=== PATIENT | male | born 1960 | race African-American/Black ===

== ENCOUNTER 2022-07-16 09:53 | Inpatient (IN) | payer MEDICAID ==
[~2022-07-16] VITALS: Ht 175.3 cm; Wt 62.8 kg
[~2022-07-16 09:53] MED LIST: ALBU90AE INH; ATOR10TA PO; FURO-151 MT; LOSA25TA3 PO
[2022-07-16] MEDS ORDERED: METHYLPREDNISOLONE SOD SUCC 125 MG/2 ML VIAL IV STA (10:12)
[2022-07-16] MEDS ORDERED: IPRATROPIUM BROMIDE (0.02%) 0.5MG/2.5ML NEB HHN STA (10:12)
[2022-07-16] MEDS ORDERED: MAGNESIUM 2 G PREMIX 50 ML IV ONE (10:15)
[2022-07-16] MEDS ORDERED: FUROSEMIDE 40MG/4ML VIAL IV ONE (10:15)
[2022-07-16] MEDS ORDERED: ALBUTEROL (0.083%) 2.5MG/3ML NEB HHN SCH (10:30)
[2022-07-16] MEDS ORDERED: PIPERACILLIN/TAZ 3.375G PREMIX 50 ML IV NR (10:49)
[2022-07-16 10:50] LABS: BASOPHILS % 0.5 % (0.0-2.0); EOSINOPHILS % 8.9 % (0.0-5.0); HEMATOCRIT. 44.3 % (42.0-52.0); HEMOGLOBIN. 14.3 g/dL (14.0-18.0); MEAN CORPUSCULAR HEMOGLOBIN 32.4 pg (28.0-32.0); MEAN CORPUSCULAR VOLUME 100.3 fL (80.0-94.0); MONOCYTES % 9.8 % (2.0-8.0); NEUTROPHILS % 53.8 % (40.0-76.0); PLATELET 248 x1000/uL (130-400); RED BLOOD CELL COUNT 4.42 mill/uL (4.7-6.1); RED CELL DISTRIBUTION WIDTH 14.2 % (11.6-14.6)
[2022-07-16 10:55] LABS: CHLORIDE 107 mEq/L (98-107)
[2022-07-16] MEDS ORDERED: ASPIRIN 325MG EC TABLET PO ONE (12:00)
[2022-07-16 13:08] LABS: BG CARBOXYHEMOGLOBIN 0.9 % (0.5-1.5); BG DEOXYHEMOGLOBIN 0.1 % (0.0-5.0); BG FRACTION INSPIRED OXYGEN 100; BG HCO3 ACT 24.9 mmol/L (22.0-26.0); BG METHEMOGLOBIN 0.4 % (0.0-1.5); BG OXYGEN SATURATION 99.9 % (92.0-98.5); BG OXYHEMOGLOBIN 98.6 % (94.0-97.0); BG PCO2 41.5 mmHg (35.0-45.0); BG PH 7.396 (7.350-7.450); BG PO2 519.2 mmHg (75.0-100.0); BG SAMPLE SITE RIGHT RADIAL; BG TOTAL HEMOGLOBIN 14.9 g/dL (12.0-18.0); BG VENT MODE MASK - BIPAP
[2022-07-16] MEDS ORDERED: LOSARTAN POTASSIUM 25 MG TABLET PO SCH (14:00)
[2022-07-16] MEDS ORDERED: CLONIDINE 0.1MG TABLET PO PRN (14:15)
[2022-07-16] MEDS ORDERED: ONDANSETRON HCL 4MG/2ML INJ IV PRN (14:15)
[2022-07-16 14:52] LABS: CLARITY URINE CLEAR (CLEAR); COLOR URINE YELLOW (YELLOW); KETONES URINE NEGATIVE (NEGATIVE); LEUKOCYTE ESTERASE URINE TRACE (NEGATIVE); NITRITE URINE NEGATIVE (NEGATIVE); OCCULT BLOOD URINE NEGATIVE (NEGATIVE); PH URINE 5.5 (4.5-8.0); PROTEIN URINE NEGATIVE (NEGATIVE); SPECIFIC GRAVITY URINE 1.007 (1.005-1.030); UROBILINOGEN URINE 0.2 E.U./dL (0.2-1.0)
[2022-07-16 15:08] LABS: *AMPHETAMINES SCREEN URINE PRESUMTIVE POSITIVE (NEGATIVE); *BARBITURATES SCREEN URINE NEGATIVE (NEGATIVE); *BENZODIAZEPINES SCREEN URINE NEGATIVE (NEGATIVE); *COCAINE SCREEN URINE PRESUMTIVE POSITIVE (NEGATIVE); CANNABINOID URINE SCREEN NEGATIVE (NEGATIVE); METHADONE URINE SCREEN NEGATIVE (NEGATIVE); OPIATES URINE SCREEN NEGATIVE (NEGATIVE); PHENCYCLIDINE URINE SCREEN NEGATIVE (NEGATIVE)
[2022-07-16] MEDS ORDERED: FUROSEMIDE 40MG/4ML VIAL IVP SCH (16:00)
[2022-07-16] MEDS: ENOXAPARIN 40MG/0.4ML SYR SUBCUT SCH (18:03)
[2022-07-16] MEDS: IPRATROPIUM/ALBUTEROL 0.5-3(2.5)MG/3ML NEB HHN SCH (20:30)
[2022-07-16] MEDS: ATORVASTATIN CALCIUM 10MG TABLET PO SCH (21:00)
[2022-07-16] MEDS: FUROSEMIDE 40MG/4ML VIAL IVP SCH (21:00)
[2022-07-16] MEDS: METHYLPREDNISOLONE SOD SUCC 125 MG/2 ML VIAL IV SCH (22:23)
[2022-07-17] VITALS (10 sets, daily range): BP systolic 105–144; BP diastolic 73–98
[2022-07-17] MEDS: IPRATROPIUM/ALBUTEROL 0.5-3(2.5)MG/3ML NEB HHN SCH ×7 (00:19→23:04)
[2022-07-17 00:20] LABS: CREATINE KINASE MB FRACTION 2.5 ng/mL (0.5-3.6)
[2022-07-17] MEDS: ACETAMINOPHEN 325MG TABLET PO PRN ×2 (03:30→19:50)
[2022-07-17] MEDS: METHYLPREDNISOLONE SOD SUCC 125 MG/2 ML VIAL IV SCH ×3 (05:00→22:07)
[2022-07-17] MEDS ORDERED: HYDRALAZINE 20MG/ML VIAL IV PRN (07:30)
[2022-07-17] MEDS: PANTOPRAZOLE 40MG DR TABLET PO SCH (09:27)
[2022-07-17] MEDS: FUROSEMIDE 40MG/4ML VIAL IVP SCH ×2 (09:27→20:24)
[2022-07-17] MEDS: ASPIRIN 81MG EC TABLET PO SCH (09:27)
[2022-07-17] MEDS: LOSARTAN POTASSIUM 25 MG TABLET PO SCH (09:28)
[2022-07-17 11:27] LABS: CHLORIDE 100 mEq/L (98-107)
[2022-07-17 11:39] LABS: CREATINE KINASE 91 IU/L (39-308); CREATINE KINASE MB FRACTION 2.9 ng/mL (0.5-3.6)
[2022-07-17 11:43] LABS: T4 FREE 1.05 ng/dL (0.76-1.46)
[2022-07-17 11:49] LABS: HEMATOCRIT. 44.3 % (42.0-52.0); HEMOGLOBIN. 14.5 g/dL (14.0-18.0); MEAN CORPUSCULAR HEMOGLOBIN 32.7 pg (28.0-32.0); MEAN CORPUSCULAR VOLUME 100.2 fL (80.0-94.0); MEAN PLATELET VOLUME 9.4 fl (7.4-10.4); PLATELET 240 x1000/uL (130-400); RED BLOOD CELL COUNT 4.43 mill/uL (4.7-6.1)
[2022-07-17] MEDS: ENOXAPARIN 40MG/0.4ML SYR SUBCUT SCH (17:14)
[2022-07-17 18:07] LABS: HEMATOCRIT 42.2 % (42.0-52.0); HEMOGLOBIN 13.5 g/dL (14.0-18.0); MEAN CORPUSCULAR HEMOGLOBIN 32.1 pg (28.0-32.0); MEAN CORPUSCULAR VOLUME 100.4 fL (80.0-94.0); PLATELET 243 x1000/uL (130-400); RED BLOOD CELL COUNT 4.21 mill/uL (4.7-6.1); RED CELL DISTRIBUTION WIDTH 13.9 % (11.6-14.6)
[2022-07-17] MEDS: ATORVASTATIN CALCIUM 10MG TABLET PO SCH (20:24)
[2022-07-18] VITALS (13 sets, daily range): BP systolic 111–160; BP diastolic 56–109
[2022-07-18] MEDS: IPRATROPIUM/ALBUTEROL 0.5-3(2.5)MG/3ML NEB HHN SCH ×6 (00:25→16:28)
[2022-07-18] MEDS: METHYLPREDNISOLONE SOD SUCC 125 MG/2 ML VIAL IV SCH ×2 (06:02→15:38)
[2022-07-18] MEDS: PANTOPRAZOLE 40MG DR TABLET PO SCH (07:58)
[2022-07-18] MEDS: FUROSEMIDE 40MG/4ML VIAL IVP SCH ×2 (07:58→20:07)
[2022-07-18] MEDS: LOSARTAN POTASSIUM 25 MG TABLET PO SCH (07:58)
[2022-07-18] MEDS: ASPIRIN 81MG EC TABLET PO SCH (07:59)
[2022-07-18 10:21] LABS: PLATELET ESTIMATE NORMAL
[2022-07-18] MEDS: DILTIAZEM HCL 30MG TABLET PO SCH ×2 (15:38→18:00)
[2022-07-18] MEDS: ENOXAPARIN 40MG/0.4ML SYR SUBCUT SCH (15:39)
[2022-07-18] MEDS: ATORVASTATIN CALCIUM 10MG TABLET PO SCH (20:06)
[2022-07-18] MEDS ORDERED: METHYLPREDNISOLONE 40MG/ML INJ IV SCH (22:00)
[2022-07-19] VITALS (12 sets, daily range): BP systolic 108–130; BP diastolic 56–93
[2022-07-19] MEDS: METHYLPREDNISOLONE SOD SUCC 40 MG/ML VIAL IV SCH ×4 (00:26→21:00)
[2022-07-19] MEDS: DILTIAZEM HCL 30MG TABLET PO SCH ×5 (00:33→23:21)
[2022-07-19] MEDS: PANTOPRAZOLE 40MG DR TABLET PO SCH (06:33)
[2022-07-19] MEDS: LOSARTAN POTASSIUM 25 MG TABLET PO SCH (09:33)
[2022-07-19] MEDS: ASPIRIN 81MG EC TABLET PO SCH (09:33)
[2022-07-19] MEDS ORDERED: LACTULOSE 20G/30ML UDC PO NR (09:45)
[2022-07-19] MEDS: FUROSEMIDE 40MG TABLET PO SCH (11:29)
[2022-07-19] MEDS: DOCUSATE SODIUM 100MG CAPSULE PO SCH (11:29)
[2022-07-19] MEDS: IPRATROPIUM/ALBUTEROL 0.5-3(2.5)MG/3ML NEB HHN SCH ×3 (12:09→21:19)
[2022-07-19] MEDS: ENOXAPARIN 40MG/0.4ML SYR SUBCUT SCH (16:14)
[2022-07-19] MEDS: ATORVASTATIN CALCIUM 10MG TABLET PO SCH (20:56)
[2022-07-20] VITALS (7 sets, daily range): BP systolic 114–137; BP diastolic 69–90
[2022-07-20] MEDS: IPRATROPIUM/ALBUTEROL 0.5-3(2.5)MG/3ML NEB HHN SCH ×4 (00:36→11:35)
[2022-07-20] MEDS: DILTIAZEM HCL 30MG TABLET PO SCH (06:19)
[2022-07-20] MEDS: METHYLPREDNISOLONE SOD SUCC 40 MG/ML VIAL IV SCH (06:19)
[2022-07-20] MEDS: LOSARTAN POTASSIUM 25 MG TABLET PO SCH (08:15)
[2022-07-20] MEDS: ASPIRIN 81MG EC TABLET PO SCH (08:15)
[2022-07-20] MEDS: FUROSEMIDE 40MG TABLET PO SCH (08:15)
[2022-07-20] MEDS: DOCUSATE SODIUM 100MG CAPSULE PO SCH (08:15)
[2022-07-20] MEDS ORDERED: FAMOTIDINE 20MG TABLET PO SCH (09:00)
[2022-07-20 11:25] LABS: HEMATOCRIT. 45.5 % (42.0-52.0); HEMOGLOBIN. 14.2 g/dL (14.0-18.0); MEAN CORPUSCULAR HEMOGLOBIN 32.7 pg (28.0-32.0); MEAN CORPUSCULAR VOLUME 105.1 fL (80.0-94.0); PLATELET 215 x1000/uL (130-400); RED BLOOD CELL COUNT 4.33 mill/uL (4.7-6.1); RED CELL DISTRIBUTION WIDTH 14.3 % (11.6-14.6)
[2022-07-20 11:35] LABS: CHLORIDE 102 mEq/L (98-107)
[2022-07-20 12:03] LABS: PLATELET ESTIMATE NORMAL
== END 2022-07-20 12:40 | disposition home or self-care (01) | DRG 133 ==
LOC: ER 09:53 → MICUSO 11:46 → EDBEDREQ 12:29 → EDBEDREQSVC 12:29 → EDBEDREQTM 12:29 → ENRESERV 22:37 → 5EST 07-17 02:30
PROVIDERS: ADMIT Internal Medicine; ATTEND Internal Medicine
PROC: 5A09357 Assistance with Respiratory Ventilation, Less than 24 Consecutive Hours, Continuous Positive Airway Pressure (ICD-10-PCS; principal; 2022-07-16)
DX: J96.20 Acute and chronic respiratory failure, unspecified whether with hypoxia or hypercapnia (principal); I50.23 Acute on chronic systolic (congestive) heart failure; N17.9 Acute kidney failure, unspecified; J44.1 Chronic obstructive pulmonary disease with (acute) exacerbation; I11.0 Hypertensive heart disease with heart failure; E78.5 Hyperlipidemia, unspecified; R73.9 Hyperglycemia, unspecified; F19.10 Other psychoactive substance abuse, uncomplicated; F17.200 Nicotine dependence, unspecified, uncomplicated; F14.90 Cocaine use, unspecified, uncomplicated; Z79.899 Other long term (current) drug therapy
CPT/HCPCS: 36415; 36600; 71045; 80048; 80053; 80061; 80305; 81003; 82375; 82550; 82553; 82805; 83036; 83735; 83880; 84439; 84443; 84484; 85025; 85027; 93005; 94640; 94660; 99291; J1650; J1940; J2543; J2920; J2930; J3475

== ENCOUNTER 2022-09-08 13:20 | Inpatient (IN) | payer MEDICAID ==
[~2022-09-08] VITALS: Ht 177.8 cm; Wt 73.5 kg
[2022-09-08 16:22] LABS: HEMATOCRIT. 45.5 % (42.0-52.0); HEMOGLOBIN. 14.9 g/dL (14.0-18.0); MEAN CORPUSCULAR HEMOGLOBIN 32.7 pg (28.0-32.0); MEAN CORPUSCULAR VOLUME 99.9 fL (80.0-94.0); MEAN PLATELET VOLUME 9.4 fl (7.4-10.4); PLATELET 210 x1000/uL (130-400); RED BLOOD CELL COUNT 4.56 mill/uL (4.7-6.1); RED CELL DISTRIBUTION WIDTH 14.7 % (11.6-14.6)
[2022-09-08 16:25] LABS: CHLORIDE 106 mEq/L (98-107)
[2022-09-08 17:12] LABS: PLATELET ESTIMATE NORMAL
[2022-09-08] MEDS ORDERED: ASPIRIN 325MG EC TABLET PO ONE (19:30)
[2022-09-08] MEDS ORDERED: ONDANSETRON HCL 4MG/2ML INJ IV PRN (19:45)
[2022-09-08] MEDS ORDERED: GUAIFENESIN 200MG/10ML SUGAR FREE UDC PO PRN (19:45)
[2022-09-08] MEDS ORDERED: IPRATROPIUM/ALBUTEROL 0.5-3(2.5)MG/3ML NEB HHN PRN (19:45)
[2022-09-08] MEDS ORDERED: DOCUSATE SODIUM 100MG CAPSULE PO PRN (19:45)
[2022-09-08] MEDS ORDERED: MAGNESIUM/ALUMINUM HYDROXIDE/SIMETHICONE 30ML UDC PO PRN (19:45)
[2022-09-08] MEDS ORDERED: HYDROCODONE/ACETAMINOPHEN 5/325MG TABLET PO PRN (19:45)
[2022-09-08] MEDS ORDERED: ACETAMINOPHEN 325MG TABLET PO PRN ×2 (19:45)
[2022-09-08] MEDS ORDERED: ACETAMINOPHEN 650MG SUPP PR PRN ×2 (19:45)
[2022-09-08 20:04] LABS: CLARITY URINE CLOUDY (CLEAR); COLOR URINE DARK YELLOW (YELLOW); KETONES URINE TRACE (NEGATIVE); LEUKOCYTE ESTERASE URINE 2+ (NEGATIVE); NITRITE URINE NEGATIVE (NEGATIVE); OCCULT BLOOD URINE TRACE (NEGATIVE); PROTEIN URINE 3+ (NEGATIVE); SPECIFIC GRAVITY URINE 1.029 (1.005-1.030)
[2022-09-08] MEDS ORDERED: AZITHROMYCIN 500 MG TABLET PO ONE (20:15)
[2022-09-08] MEDS ORDERED: CEFTRIAXONE 1 G PREMIX 50 ML IV ONE (20:15)
[2022-09-08] MEDS: ENOXAPARIN 40MG/0.4ML SYR SUBCUT SCH (21:00)
[2022-09-08] MEDS ORDERED: AZITHROMYCIN 500 MG TABLET PO NR (23:00)
[2022-09-08] MEDS ORDERED: CEFTRIAXONE 1 G PREMIX 50 ML IV NR (23:00)
[2022-09-08] MEDS ORDERED: ASPIRIN 325MG EC TABLET PO NR (23:45)
[2022-09-09 05:42] LABS: HEMATOCRIT. 52.5 % (42.0-52.0); HEMOGLOBIN. 17.3 g/dL (14.0-18.0); MEAN CORPUSCULAR HEMOGLOBIN 32.8 pg (28.0-32.0); MEAN CORPUSCULAR VOLUME 99.7 fL (80.0-94.0); MEAN PLATELET VOLUME 9.4 fl (7.4-10.4); PLATELET 211 x1000/uL (130-400); RED BLOOD CELL COUNT 5.27 mill/uL (4.7-6.1); RED CELL DISTRIBUTION WIDTH 14.6 % (11.6-14.6)
[2022-09-09 05:52] LABS: CHLORIDE 105 mEq/L (98-107)
[2022-09-09 06:10] LABS: CREATINE KINASE 164 IU/L (39-308); HDL CHOLESTEROL 57 mg/dL (40-59); LDL CHOLESTEROL 157 mg/dL (5-100)
[2022-09-09 06:54] LABS: PLATELET ESTIMATE NORMAL
[2022-09-09 09:00] VITALS: BP 123/97
[2022-09-09 09:47] VITALS: BP 123/97
[2022-09-09] MEDS: LISINOPRIL 10MG TABLET PO SCH (10:29)
[2022-09-09] MEDS: FUROSEMIDE 40MG/4ML VIAL IV SCH (10:29)
[2022-09-09] MEDS: AMLODIPINE 10MG TABLET PO SCH (10:29)
[2022-09-09 12:00] VITALS: BP 121/88
[2022-09-09 12:59] LABS: *AMPHETAMINES SCREEN URINE NEGATIVE (NEGATIVE); *BARBITURATES SCREEN URINE NEGATIVE (NEGATIVE); *BENZODIAZEPINES SCREEN URINE NEGATIVE (NEGATIVE); *COCAINE SCREEN URINE PRESUMTIVE POSITIVE (NEGATIVE); CANNABINOID URINE SCREEN PRESUMTIVE POSITIVE (NEGATIVE); METHADONE URINE SCREEN NEGATIVE (NEGATIVE); OPIATES URINE SCREEN NEGATIVE (NEGATIVE); PHENCYCLIDINE URINE SCREEN NEGATIVE (NEGATIVE)
[2022-09-09] MEDS ORDERED: NALOXONE HCL 0.4MG/ML VIAL IV PRN (14:45)
[2022-09-09 16:00] VITALS: BP 107/69
[2022-09-09 20:00] VITALS: BP 115/86
[2022-09-09] MEDS: ENOXAPARIN 40MG/0.4ML SYR SUBCUT SCH (21:38)
[2022-09-10] VITALS: BP 120/86
[2022-09-10 04:00] VITALS: BP 118/89
[2022-09-10 08:00] VITALS: BP 123/83
[2022-09-10] MEDS ORDERED: PNEUMOCOCCAL 23-VAL P-SAC VAC 0.5 ML IM ONE (09:00)
[2022-09-10] MEDS ORDERED: INFLUENZA VACCINE 05/PF 0.5 ML SYRINGE IM ONE (09:00)
[2022-09-10] MEDS: LISINOPRIL 10MG TABLET PO SCH (09:50)
[2022-09-10] MEDS: FUROSEMIDE 40MG/4ML VIAL IV SCH (09:51)
[2022-09-10] MEDS: AMLODIPINE 10MG TABLET PO SCH (09:51)
[2022-09-10 12:00] VITALS: BP 126/82
[2022-09-10 16:00] VITALS: BP 122/76
[2022-09-10 16:07] LABS: HEMATOCRIT 44.8 % (42.0-52.0); HEMOGLOBIN 14.9 g/dL (14.0-18.0); MEAN CORPUSCULAR HEMOGLOBIN 32.6 pg (28.0-32.0); MEAN CORPUSCULAR VOLUME 97.7 fL (80.0-94.0); PLATELET 219 x1000/uL (130-400); RED BLOOD CELL COUNT 4.58 mill/uL (4.7-6.1); RED CELL DISTRIBUTION WIDTH 14.4 % (11.6-14.6)
[2022-09-10 16:32] LABS: CHLORIDE 100 mEq/L (98-107)
[2022-09-10 20:00] VITALS: BP 104/72
[2022-09-10] MEDS: ENOXAPARIN 40MG/0.4ML SYR SUBCUT SCH (21:23)
[2022-09-11] VITALS (7 sets, daily range): BP systolic 99–115; BP diastolic 63–83
[2022-09-11] MEDS: FUROSEMIDE 40MG/4ML VIAL IV SCH (09:52)
[2022-09-11] MEDS: LISINOPRIL 10MG TABLET PO SCH (09:52)
== END 2022-09-11 13:50 | disposition home or self-care (01) | DRG 254 ==
LOC: ER 13:20 → 6WST 09-09 07:43 → EDBEDREQTM 09-09 07:45 → EDBEDREQ 09-09 07:45 → ENRESERV 09-09 08:20
PROVIDERS: ADMIT Family Medicine Adult Medicine; ATTEND Family Medicine Adult Medicine
DX: K40.90 Unilateral inguinal hernia, without obstruction or gangrene, not specified as recurrent (principal); I42.9 Cardiomyopathy, unspecified; I50.9 Heart failure, unspecified; I11.0 Hypertensive heart disease with heart failure; F17.210 Nicotine dependence, cigarettes, uncomplicated; F12.10 Cannabis abuse, uncomplicated; F14.10 Cocaine abuse, uncomplicated; E78.5 Hyperlipidemia, unspecified; R74.01 Elevation of levels of liver transaminase levels; N50.89 Other specified disorders of the male genital organs; I37.1 Nonrheumatic pulmonary valve insufficiency; N43.3 Hydrocele, unspecified; I34.0 Nonrheumatic mitral (valve) insufficiency
CPT/HCPCS: 36415; 71045; 76870; 80053; 80061; 80305; 81003; 82550; 83880; 84443; 84484; 85025; 85027; 90686; 90732; 93005; 93976; 97162; 99285; J0696; J1650; J1940; J2405

== ENCOUNTER 2022-11-17 10:05 | Inpatient (IN) | payer MEDICAID ==
[~2022-11-17] VITALS: Ht 177.8 cm; Wt 60.4 kg
[2022-11-17] MEDS ORDERED: CEFTRIAXONE 1 G PREMIX 50 ML IV ONE (12:00)
[2022-11-17 13:12] LABS: BASOPHILS % 0.3 % (0.0-2.0); EOSINOPHILS % 1.2 % (0.0-5.0); HEMATOCRIT. 34.1 % (42.0-52.0); HEMOGLOBIN. 11.3 g/dL (14.0-18.0); LYMPHOCYTES % 8.7 % (20.0-50.0); MEAN CORPUSCULAR HEMOGLOBIN 32.5 pg (28.0-32.0); MEAN CORPUSCULAR VOLUME 97.8 fL (80.0-94.0); MEAN PLATELET VOLUME 8.2 fl (7.4-10.4); MONOCYTES % 12.4 % (2.0-8.0); NEUTROPHILS % 77.4 % (40.0-76.0); PLATELET 257 x1000/uL (130-400); RED BLOOD CELL COUNT 3.49 mill/uL (4.7-6.1)
[2022-11-17 13:23] LABS: CHLORIDE 107 mEq/L (98-107)
[2022-11-17] MEDS ORDERED: ONDANSETRON HCL 4MG/2ML INJ IV PRN (17:15)
[2022-11-17] MEDS: FUROSEMIDE 40MG/4ML VIAL IVP SCH (17:15)
[2022-11-18] VITALS (7 sets, daily range): BP systolic 113–143; BP diastolic 73–113
[2022-11-18 01:17] LABS: HEMOGLOBIN. 11.2 g/dL (14.0-18.0); MEAN CORPUSCULAR VOLUME 97.2 fL (80.0-94.0); MEAN PLATELET VOLUME 8.3 fl (7.4-10.4); PLATELET 264 x1000/uL (130-400); RED CELL DISTRIBUTION WIDTH 16.1 % (11.6-14.6)
[2022-11-18 02:22] LABS: PLATELET ESTIMATE NORMAL
[2022-11-18 08:24] LABS: CHLORIDE 105 mEq/L (98-107)
[2022-11-18] MEDS: FUROSEMIDE 40MG/4ML VIAL IVP SCH (09:24)
[2022-11-18] MEDS ORDERED: VANCOMYCIN 1500MG in DEXTROSE 5% WATER 250ML IV NR (18:00)
[2022-11-18] MEDS: ENOXAPARIN 40MG/0.4ML SYR SUBCUT SCH (21:00)
[2022-11-18] MEDS: FAMOTIDINE 20MG TABLET PO SCH (21:15)
[2022-11-18] MEDS: PIPERACILLIN/TAZOBACTAM 3.375 G in DEXTROSE 5% WATER 50 ML IV SCH (22:18)
[2022-11-19] VITALS: BP 109/73
[2022-11-19 04:00] VITALS: BP 128/88
[2022-11-19] MEDS: PIPERACILLIN/TAZOBACTAM 3.375 G in DEXTROSE 5% WATER 50 ML IV SCH ×3 (05:10→23:18)
[2022-11-19] MEDS ORDERED: VANCOMYCIN 1G PREMIX 200 ML IV SCH (06:00)
[2022-11-19 06:43] LABS: CHLORIDE 104 mEq/L (98-107)
[2022-11-19 07:31] LABS: HEMATOCRIT. 33.3 % (42.0-52.0); MEAN CORPUSCULAR HEMOGLOBIN 32.3 pg (28.0-32.0); MEAN CORPUSCULAR VOLUME 97.5 fL (80.0-94.0); MEAN PLATELET VOLUME 8.6 fl (7.4-10.4); PLATELET 296 x1000/uL (130-400); RED BLOOD CELL COUNT 3.41 mill/uL (4.7-6.1)
[2022-11-19 08:00] VITALS: BP 126/87
[2022-11-19] MEDS: FUROSEMIDE 40MG/4ML VIAL IVP SCH (09:34)
[2022-11-19 11:23] LABS: CLARITY URINE CLEAR (CLEAR); COLOR URINE YELLOW (YELLOW); KETONES URINE NEGATIVE (NEGATIVE); LEUKOCYTE ESTERASE URINE NEGATIVE (NEGATIVE); NITRITE URINE NEGATIVE (NEGATIVE); OCCULT BLOOD URINE NEGATIVE (NEGATIVE); PROTEIN URINE NEGATIVE (NEGATIVE); SPECIFIC GRAVITY URINE 1.006 (1.005-1.030); UROBILINOGEN URINE 0.2 E.U./dL (0.2-1.0)
[2022-11-19 12:00] VITALS: BP 124/80
[2022-11-19 12:13] LABS: *AMPHETAMINES SCREEN URINE NEGATIVE (NEGATIVE); *BARBITURATES SCREEN URINE NEGATIVE (NEGATIVE); *BENZODIAZEPINES SCREEN URINE NEGATIVE (NEGATIVE); *COCAINE SCREEN URINE NEGATIVE (NEGATIVE); CANNABINOID URINE SCREEN NEGATIVE (NEGATIVE); METHADONE URINE SCREEN NEGATIVE (NEGATIVE); OPIATES URINE SCREEN NEGATIVE (NEGATIVE); PHENCYCLIDINE URINE SCREEN NEGATIVE (NEGATIVE)
[2022-11-19 13:44] LABS: PLATELET ESTIMATE NORMAL
[2022-11-19 16:00] VITALS: BP 116/79
[2022-11-19] MEDS ORDERED: VANCOMYCIN 750MG PREMIX 150 ML IV NR (21:00)
[2022-11-19] MEDS: FAMOTIDINE 20MG TABLET PO SCH (21:25)
[2022-11-19] MEDS: CARVEDILOL 6.25 MG TABLET PO SCH (21:27)
[2022-11-19] MEDS: ENOXAPARIN 40MG/0.4ML SYR SUBCUT SCH (21:28)
[2022-11-20] VITALS: BP 92/58
[2022-11-20] MEDS: PIPERACILLIN/TAZOBACTAM 3.375 G in DEXTROSE 5% WATER 50 ML IV SCH ×3 (05:27→22:05)
[2022-11-20 08:00] VITALS: BP 109/82
[2022-11-20 08:11] LABS: CHLORIDE 103 mEq/L (98-107)
[2022-11-20] MEDS: CARVEDILOL 6.25 MG TABLET PO SCH ×2 (09:00→21:00)
[2022-11-20] MEDS: FUROSEMIDE 40MG/4ML VIAL IVP SCH (09:23)
[2022-11-20 12:00] VITALS: BP 118/76
[2022-11-20 16:00] VITALS: BP 116/90
[2022-11-20 16:09] LABS: HEMATOCRIT. 33.7 % (42.0-52.0); MEAN CORPUSCULAR VOLUME 97.4 fL (80.0-94.0); PLATELET 350 x1000/uL (130-400); RED BLOOD CELL COUNT 3.45 mill/uL (4.7-6.1); RED CELL DISTRIBUTION WIDTH 16.1 % (11.6-14.6)
[2022-11-20 16:29] LABS: CHLORIDE 99 mEq/L (98-107)
[2022-11-20] MEDS ORDERED: VANCOMYCIN 750MG PREMIX 150 ML IV SCH (18:00)
[2022-11-20 18:12] LABS: PLATELET ESTIMATE NORMAL
[2022-11-20 20:00] VITALS: BP 93/64
[2022-11-20] MEDS: ENOXAPARIN 40MG/0.4ML SYR SUBCUT SCH (21:00)
[2022-11-20] MEDS: FAMOTIDINE 20MG TABLET PO SCH (22:04)
[2022-11-21] VITALS: BP 100/62
[2022-11-21 04:00] VITALS: BP 99/68
[2022-11-21] MEDS: PIPERACILLIN/TAZOBACTAM 3.375 G in DEXTROSE 5% WATER 50 ML IV SCH ×3 (06:16→22:00)
[2022-11-21 08:00] VITALS: BP 100/82
[2022-11-21] MEDS: CARVEDILOL 6.25 MG TABLET PO SCH ×3 (08:54→21:17)
[2022-11-21] MEDS: FUROSEMIDE 40MG/4ML VIAL IVP SCH (08:55)
[2022-11-21 16:00] VITALS: BP 97/61
[2022-11-21 20:00] VITALS: BP 95/64
[2022-11-21] MEDS ORDERED: VANCOMYCIN 750MG PREMIX 150 ML IV SCH (21:00)
[2022-11-21] MEDS: ENOXAPARIN 40MG/0.4ML SYR SUBCUT SCH (21:16)
[2022-11-21] MEDS: FAMOTIDINE 20MG TABLET PO SCH (21:16)
[2022-11-22] VITALS: BP 96/33
[2022-11-22 04:00] VITALS: BP 106/74
[2022-11-22] MEDS: PIPERACILLIN/TAZOBACTAM 3.375 G in DEXTROSE 5% WATER 50 ML IV SCH ×2 (05:34→13:45)
[2022-11-22 07:01] LABS: CHLORIDE 100 mEq/L (98-107)
[2022-11-22 08:00] VITALS: BP 98/69
[2022-11-22] MEDS: FUROSEMIDE 40MG/4ML VIAL IVP SCH (08:40)
[2022-11-22] MEDS: CARVEDILOL 6.25 MG TABLET PO SCH ×2 (08:40→21:00)
[2022-11-22] MEDS: ACETAMINOPHEN 325MG TABLET PO PRN ×2 (10:50→20:30)
[2022-11-22 12:00] VITALS: BP 92/67
[2022-11-22 16:00] VITALS: BP 97/58
[2022-11-22 20:00] VITALS: BP 103/57
[2022-11-22] MEDS: FAMOTIDINE 20MG TABLET PO SCH (20:30)
[2022-11-22] MEDS: VANCOMYCIN 1G PREMIX 200 ML IV SCH (20:30)
[2022-11-22] MEDS: ENOXAPARIN 40MG/0.4ML SYR SUBCUT SCH (20:38)
[2022-11-23] VITALS: BP 92/56
[2022-11-23] MEDS: PIPERACILLIN/TAZOBACTAM 3.375 G in DEXTROSE 5% WATER 50 ML IV SCH ×3 (02:39→14:59)
[2022-11-23 04:00] VITALS: BP 96/60
[2022-11-23 07:51] LABS: CHLORIDE 102 mEq/L (98-107)
[2022-11-23 08:00] VITALS: BP 100/65
[2022-11-23] MEDS: CARVEDILOL 6.25 MG TABLET PO SCH ×2 (09:00→21:00)
[2022-11-23] MEDS: FUROSEMIDE 40MG/4ML VIAL IVP SCH (09:29)
[2022-11-23] MEDS: ACETAMINOPHEN 325MG TABLET PO PRN ×2 (11:30→20:47)
[2022-11-23 12:00] VITALS: BP 120/63
[2022-11-23 16:00] VITALS: BP 100/67
[2022-11-23 20:00] VITALS: BP 98/61
[2022-11-23] MEDS: VANCOMYCIN 1G PREMIX 200 ML IV SCH (20:20)
[2022-11-23] MEDS: FAMOTIDINE 20MG TABLET PO SCH (20:47)
[2022-11-23] MEDS: ENOXAPARIN 40MG/0.4ML SYR SUBCUT SCH (21:00)
[2022-11-24] VITALS: BP 98/64
[2022-11-24] MEDS: PIPERACILLIN/TAZOBACTAM 3.375 G in DEXTROSE 5% WATER 50 ML IV SCH (00:52)
[2022-11-24 04:00] VITALS: BP 103/76
[2022-11-24 06:54] LABS: HEMATOCRIT. 34.9 % (42.0-52.0); HEMOGLOBIN. 11.5 g/dL (14.0-18.0); MEAN CORPUSCULAR HEMOGLOBIN 31.7 pg (28.0-32.0); MEAN CORPUSCULAR VOLUME 96.1 fL (80.0-94.0); MEAN PLATELET VOLUME 8.3 fl (7.4-10.4); PLATELET 408 x1000/uL (130-400); RED BLOOD CELL COUNT 3.63 mill/uL (4.7-6.1); RED CELL DISTRIBUTION WIDTH 15.8 % (11.6-14.6)
[2022-11-24 07:18] LABS: CHLORIDE 103 mEq/L (98-107)
[2022-11-24 08:00] VITALS: BP 117/75
[2022-11-24] MEDS: FUROSEMIDE 40MG/4ML VIAL IVP SCH (08:39)
[2022-11-24] MEDS ORDERED: SODIUM CHLORIDE 0.45% 500 ML IV ONE (09:00)
[2022-11-24] MEDS: CARVEDILOL 6.25 MG TABLET PO SCH ×2 (09:00→21:00)
[2022-11-24 12:00] VITALS: BP 109/73
[2022-11-24] MEDS ORDERED: HEPARIN 1000 UNITS/ML 10ML ONE (12:24)
[2022-11-24] MEDS ORDERED: LIDOCAINE HCL 1% 50ML VIAL (10MG/ML) ONE (12:25)
[2022-11-24] MEDS ORDERED: IODIXANOL 320MG/ML 100 ML BOTTLE IV ONE (12:28)
[2022-11-24] MEDS ORDERED: ASPIRIN/SOD BICARB/CITRIC ACID 324MG TAB EFF ONE (12:36)
[2022-11-24] MEDS ORDERED: FENTANYL CITRATE/PF 50MCG/ML 2ML VIAL ONE ×3 (12:58→14:11)
[2022-11-24] MEDS ORDERED: MIDAZOLAM HCL 2 MG/2 ML VIAL ONE ×2 (12:58→13:29)
[2022-11-24 13:40] LABS: PLATELET ESTIMATE SLIGHTLY INCREASED
[2022-11-24] MEDS ORDERED: CLOPIDOGREL 75MG TABLET ONE (14:12)
[2022-11-24] MEDS ORDERED: CLOPIDOGREL 75MG TABLET PO ONE (14:30)
[2022-11-24] MEDS ORDERED: ONDANSETRON HCL 4MG/2ML INJ IV PRN (14:30)
[2022-11-24] MEDS ORDERED: MORPHINE SULFATE 2 MG/ML CPJ (NOT FOR IM USE) IV PRN (14:30)
[2022-11-24] MEDS ORDERED: SODIUM CHLORIDE 0.45% 1,000 ML IV SCH (14:30)
[2022-11-24] MEDS ORDERED: ACETAMINOPHEN 325MG TABLET PO PRN (14:30)
[2022-11-24] MEDS ORDERED: ATROPINE SULFATE 1MG/10ML SYR IV PRN (14:30)
[2022-11-24] MEDS ORDERED: NALOXONE HCL 0.4MG/ML VIAL IV PRN (15:00)
[2022-11-24 17:34] VITALS: BP 127/82
[2022-11-24] MEDS: FAMOTIDINE 20MG TABLET PO SCH (20:31)
[2022-11-25 07:18] LABS: HEMATOCRIT 34.7 % (42.0-52.0); HEMOGLOBIN 11.6 g/dL (14.0-18.0)
[2022-11-25 08:00] VITALS: BP 118/74
[2022-11-25] MEDS: CARVEDILOL 6.25 MG TABLET PO SCH (08:24)
[2022-11-25 08:31] LABS: CHLORIDE 100 mEq/L (98-107)
[2022-11-25] MEDS ORDERED: CLOPIDOGREL 75MG TABLET PO SCH (09:00)
[2022-11-25] MEDS ORDERED: ASPIRIN 81MG TABLET PO SCH (09:00)
[2022-11-25 12:00] VITALS: BP 108/70
[2022-11-25 16:00] VITALS: BP 100/74
[2022-11-25 16:33] VITALS: BP 108/70
== END 2022-11-25 18:03 | disposition home or self-care (01) | DRG 182 ==
LOC: ER 10:05 → 6EST 12:36 → ENRESERV 19:31 → 3WST 11-24 16:57
PROVIDERS: ADMIT Internal Medicine; ATTEND Internal Medicine
PROC: 047M3Z1 Dilation of Right Popliteal Artery using Drug-Coated Balloon, Percutaneous Approach (ICD-10-PCS; principal; 2022-11-24)
PROC: 047P3ZZ Dilation of Right Anterior Tibial Artery, Percutaneous Approach (ICD-10-PCS; 2022-11-24)
DX: I73.9 Peripheral vascular disease, unspecified (principal); I50.23 Acute on chronic systolic (congestive) heart failure; I42.0 Dilated cardiomyopathy; J91.8 Pleural effusion in other conditions classified elsewhere; E44.1 Mild protein-calorie malnutrition; L03.115 Cellulitis of right lower limb; M86.8X7 Other osteomyelitis, ankle and foot; L97.819 Non-pressure chronic ulcer of other part of right lower leg with unspecified severity; I11.0 Hypertensive heart disease with heart failure; D64.9 Anemia, unspecified; B35.1 Tinea unguium; I89.0 Lymphedema, not elsewhere classified; E78.5 Hyperlipidemia, unspecified; I37.1 Nonrheumatic pulmonary valve insufficiency; M19.90 Unspecified osteoarthritis, unspecified site; Z79.899 Other long term (current) drug therapy; Z79.82 Long term (current) use of aspirin; Z87.891 Personal history of nicotine dependence
CPT/HCPCS: 36415; 37224; 37228; 71045; 73721; 75710; 80048; 80053; 80202; 80305; 81003; 83735; 85014; 85018; 85025; 85347; 85651; 87426; 93005; 97116; 97162; 97530; 99285; C1725; C1760; C1769; C1887; C1893; C1894; C2623; J0696; J1644; J1650; J1940; J2250; J2543; J3010; J3370; J3490; J7060; L1830; Q9967

== ENCOUNTER 2023-01-07 09:14 | Emergency (ER) | payer MEDICAID ==
[~2023-01-07] VITALS: Ht 167.6 cm; Wt 64.0 kg
[2023-01-07 09:55] VITALS: BP 135/74
[2023-01-07] MEDS ORDERED: ASPI-1497 MT (12:37)
[2023-01-07] MEDS ORDERED: CLOP75TA33 MT (12:37)
[2023-01-07] MEDS ORDERED: DOXY100C5 MT (12:37)
[2023-01-07] MEDS ORDERED: DOXYCYCLINE HYCLATE 100MG CAPSULE PO ONE (12:45)
== END 2023-01-07 13:58 | disposition home or self-care (01) ==
LOC: ER 09:14
DX: I70.25 Atherosclerosis of native arteries of other extremities with ulceration (principal); I11.0 Hypertensive heart disease with heart failure; I50.9 Heart failure, unspecified; Z79.899 Other long term (current) drug therapy
CPT/HCPCS: 99283

== ENCOUNTER 2023-08-25 16:16 | Emergency (ER) | payer MEDICAID, OTHER ==
[~2023-08-25] VITALS: Ht 172.7 cm; Wt 74.0 kg
[~2023-08-25 16:16] MED LIST changes: +ASPI-1497 MT; +CLOP75TA33 MT; +COR6 MT; +DILT30TA37 MT; +GABA-529 PO; +LOSA-412 PO; -LOSA25TA3 PO
[2023-08-25 17:18] LABS: HEMATOCRIT. 39.8 % (42.0-52.0); HEMOGLOBIN. 12.4 g/dL (14.0-18.0); MEAN CORPUSCULAR HEMOGLOBIN 31.5 pg (28.0-32.0); MEAN CORPUSCULAR HGB CONC 31.2 g/dL (31.0-37.0); MEAN CORPUSCULAR VOLUME 100.8 fL (80.0-94.0); MEAN PLATELET VOLUME 8.9 fl (7.4-10.4); PLATELET 214 x1000/uL (130-400); RED BLOOD CELL COUNT 3.94 mill/uL (4.7-6.1); RED CELL DISTRIBUTION WIDTH 17.2 % (11.6-14.6)
[2023-08-25 17:23] LABS: CHLORIDE 113 mEq/L (98-107); DIFFERENTIAL COMMENT 1; INDEX HEMOLYSI 2 (1-3); INDEX ICTERIC 1 (1-4); INDEX LIPEMIC 1 (1-3); POTASSIUM 4.4 mEq/L (3.5-5.1); SODIUM 144 mEq/L (136-145)
[2023-08-25 17:30] LABS: CALCIUM 9.5 mg/dL (8.5-10.1); CARBON DIOXIDE 28 mEq/L (21-32); CREATININE 1.2 mg/dL (0.6-1.3); GLUCOSE 93 mg/dL (70-105); PROTEIN TOTAL 7.4 g/dL (6.0-8.3); UREA NITROGEN BLOOD 18 mg/dL (7-21)
[2023-08-25 17:31] LABS: ALANINE AMINOTRANSFERASE 18 IU/L (13-61); ALBUMIN 3.3 g/dL (3.4-5.0); ASPARTATE AMINOTRANSFERASE 37 IU/L (15-37); BILIRUBIN TOTAL 0.7 mg/dL (0.1-1.0)
[2023-08-25 17:54] LABS: PLATELET ESTIMATE NORMAL
[2023-08-25] MEDS: HYDROCODONE/ACETAMINOPHEN 5/325MG TABLET PO ONE (19:18)
[2023-08-25] MEDS: PREDNISONE 20MG TABLET PO STA (19:19)
[2023-08-25 19:47] VITALS: PULSE 57; RESP 18; O2SAT 97
[2023-08-25] MEDS: ALBUTEROL (0.083%) 2.5MG/3ML NEB HHN STA (19:47)
[2023-08-25] MEDS: IPRATROPIUM BROMIDE (0.02%) 0.5MG/2.5ML NEB HHN STA (19:47)
[2023-08-25] MEDS ORDERED: FLUT1DIS2 INH (20:22)
[2023-08-25] MEDS ORDERED: ALBU6.7H15 INH (20:22)
[2023-08-25 20:58] VITALS: BP 126/79; PULSE 72; RESP 20; TEMP 98.2
== END 2023-08-25 21:02 | disposition home or self-care (01) ==
LOC: ER 16:16
DX: I73.9 Peripheral vascular disease, unspecified (principal); J44.9 Chronic obstructive pulmonary disease, unspecified; F19.90 Other psychoactive substance use, unspecified, uncomplicated; I10 Essential (primary) hypertension; Z86.73 Personal history of transient ischemic attack (TIA), and cerebral infarction without residual deficits
CPT/HCPCS: 80053; 85025; 36415; 94640; 99283; J7512; Z7610 ×3

== ENCOUNTER 2023-10-28 07:10 | Emergency (ER) | payer MEDICAID, OTHER ==
[~2023-10-28] VITALS: Ht 177.8 cm; Wt 87.0 kg
[~2023-10-28 07:10] MED LIST changes: +ALBU6.7H15 INH; +FLUT1DIS2 INH
[2023-10-28 07:22] VITALS: BP 113/90; PULSE 72; RESP 20; TEMP 98.6; O2SAT 94
[2023-10-28] MEDS ORDERED: PREDNISONE 20MG TABLET PO STA (07:39)
[2023-10-28] MEDS ORDERED: ALBUTEROL (0.083%) 2.5MG/3ML NEB HHN STA (07:39)
[2023-10-28] MEDS ORDERED: IPRATROPIUM BROMIDE (0.02%) 0.5MG/2.5ML NEB HHN STA (07:39)
[2023-10-28 08:51] LABS: HEMATOCRIT. 38.5 % (42.0-52.0); HEMOGLOBIN. 11.6 g/dL (14.0-18.0); MEAN CORPUSCULAR HEMOGLOBIN 31.4 pg (28.0-32.0); MEAN CORPUSCULAR VOLUME 104.4 fL (80.0-94.0); MEAN PLATELET VOLUME 9.2 fl (7.4-10.4); PLATELET 187 x1000/uL (130-400); RED BLOOD CELL COUNT 3.68 mill/uL (4.7-6.1); RED CELL DISTRIBUTION WIDTH 16.4 % (11.6-14.6); WHITE BLOOD COUNT 12.6 x1000/uL (4.5-11.0)
[2023-10-28 08:58] LABS: DIFFERENTIAL COMMENT 1
[2023-10-28 09:07] LABS: ALANINE AMINOTRANSFERASE 801 IU/L (10-49); ALBUMIN 4.2 g/dL (3.2-4.8); ASPARTATE AMINOTRANSFERASE 1505 IU/L (<34); BILIRUBIN TOTAL 1.9 mg/dL (0.1-1.0); CALCIUM 9.3 mg/dL (8.7-10.4); CARBON DIOXIDE 16 mEq/L (21-32); CHLORIDE 102 mEq/L (98-107); CREATININE 1.7 mg/dL (0.6-1.3); POTASSIUM 4.9 mEq/L (3.5-5.1); PROTEIN TOTAL 7.8 g/dL (6.0-8.3); SODIUM 138 mEq/L (136-145); UREA NITROGEN BLOOD 32 mg/dL (9-23)
[2023-10-28 09:49] LABS: GLUCOSE 30 mg/dL (70-105); TROPONIN I HIGH SENSITIVITY 352 ng/L (3.0-53)
[2023-10-28 09:51] LABS: NUCLEATED RED BLOOD CELLS 1 /100 WBC; PLATELET ESTIMATE NORMAL
== END 2023-10-28 10:01 | disposition left against medical advice (07) ==
LOC: ER 07:10
DX: R06.02 Shortness of breath (principal); M79.674 Pain in right toe(s)
CPT/HCPCS: 36415; 71045; 73630; 80053; 83880; 84484; 85025; 93005; 99284